=== PATIENT | male | born 2000 | race Asian ===

== ENCOUNTER 2020-11-25 02:31 | Emergency (ER) | payer OTHER ==
[~2020-11-25] VITALS: Ht 172.7 cm; Wt 81.6 kg
[2020-11-25 03:35] VITALS: BP 135/77; TEMP 99.7
== END 2020-11-25 03:35 | disposition home or self-care (01) ==
LOC: ED 02:31
DX: H60.8X1 Other otitis externa, right ear (principal)
CPT/HCPCS: 96372; 99283; J0696; J1885